=== PATIENT | female | born 1970 | race African-American/Black ===

== ENCOUNTER 2018-02-11 07:20 | Emergency (ER) | payer OTHER ==
[~2018-02-11] VITALS: Ht 152.4 cm; Wt 92.4 kg
[2018-02-11] MEDS ORDERED: MUCINEX600 MG PO (08:40)
[2018-02-11] MEDS ORDERED: VENTOLIN HFA18 GM IH (08:40)
[2018-02-11 08:50] VITALS: BP 134/81
== END 2018-02-11 08:50 | disposition home or self-care (01) ==
LOC: EME 07:20
DX: R05 Cough (principal); R06.00 Dyspnea, unspecified; R06.2 Wheezing
CPT/HCPCS: 71046; 94640; 99281; 99283